=== PATIENT | male | born 1980 | race Caucasian/White ===

== ENCOUNTER 2021-03-05 19:13 | Inpatient (IN) | payer OTHER ==
[~2021-03-05] VITALS: Ht 175.3 cm; Wt 94.4 kg
[2021-03-05 19:19] VITALS: BP 131/77
[2021-03-05 20:15] LABS: HEMATOCRIT 34.3 % (42.0-52.0); MCH 33.5 pg (26.0-34.0); MCHC 35.1 g/dL (28.0-37.0); MCV 95.5 fL (80.0-100.0); PLATELET COUNT 56 thou/uL (150-400); RBC 3.59 mil/uL (4.50-6.00); WBC 2.8 thou/uL (4.0-11.0)
[2021-03-05 20:41] LABS: APTT 37.5 Seconds (24.5-32.8); INR 1.88; PROTIME 19.9 Seconds (10.5-12.1)
[2021-03-05 20:44] LABS: ALBUMIN 2.7 g/dL (3.4-5.0); CALCIUM 7.6 mg/dL (8.5-10.1); CREATININE 1.1 mg/dL (0.7-1.3); TOTAL BILIRUBIN 5.8 mg/dL (0.2-1.0); TOTAL PROTEIN 5.9 g/dL (6.4-8.2)
[2021-03-05 20:46] LABS: POTASSIUM 2.4 mmol/L (3.5-5.1)
[2021-03-05 22:15] LABS: ABSOLUTE NEUTROPHILS 1.3 thou/uL (1.4-8.2); ANISOCYTOSIS 1+; HYPOCHROMASIA SLIGHT; POLYCHROMASIA 1+
[2021-03-05 23:12] VITALS: BP 131/77
[2021-03-05 23:21] LABS: MAGNESIUM 1.1 mg/dL (1.8-2.4); PHOSPHORUS 2.9 mg/dL (2.6-4.7)
[2021-03-05 23:30] VITALS: BP 102/61
[2021-03-05 23:47] LABS: FOLIC ACID 12.6 ng/mL (8.6-58.9)
[2021-03-06] VITALS (7 sets, daily range): BP systolic 90–143; BP diastolic 60–80
[2021-03-06 03:31] LABS: HEMATOCRIT 33.1 % (42.0-52.0); HEMOGLOBIN 11.7 gm/dL (14.0-18.0); MCH 33.4 pg (26.0-34.0); MCHC 35.3 g/dL (28.0-37.0); MCV 94.8 fL (80.0-100.0); RBC 3.49 mil/uL (4.50-6.00); RDW 15.6 % (10.5-14.5); WBC 3.2 thou/uL (4.0-11.0)
[2021-03-06 03:47] LABS: ALBUMIN 2.4 g/dL (3.4-5.0); CALCIUM 7.1 mg/dL (8.5-10.1); CREATININE 0.9 mg/dL (0.7-1.3); TOTAL PROTEIN 5.5 g/dL (6.4-8.2)
[2021-03-06 03:50] LABS: POTASSIUM 2.5 mmol/L (3.5-5.1)
[2021-03-06] MEDS ORDERED: NEXIUM 40 MG CA40 M1 PO (05:30)
[2021-03-06] MEDS ORDERED: SPIRONOLACTONE50 MG PO (05:30)
[2021-03-06] MEDS ORDERED: FOLIC ACID1 MG PO (05:30)
[2021-03-06] MEDS ORDERED: FUROSEMIDE 40 M40 MG PO (05:30)
--- NOTE | 2021-03-06 08:00 | NUR ---
PT WAS ADMITTED FROM ED AT 0030. ASSESSMENTS COMPLETED AND CHARTED, ELECTROLYTES REPLACED PER PROTOCOL, PT ON CIWA PROTOCOL.
[2021-03-06 15:40] LABS: MAGNESIUM 1.7 mg/dL (1.8-2.4)
[2021-03-06 15:43] LABS: POTASSIUM 2.8 mmol/L (3.5-5.1)
[2021-03-07 04:05] LABS: HEMATOCRIT 35.3 % (42.0-52.0); HEMOGLOBIN 12.6 gm/dL (14.0-18.0); MCH 34.4 pg (26.0-34.0); MCHC 35.6 g/dL (28.0-37.0); MCV 96.5 fL (80.0-100.0); RBC 3.66 mil/uL (4.50-6.00); RDW 16.5 % (10.5-14.5); WBC 4.3 thou/uL (4.0-11.0)
[2021-03-07 04:19] LABS: CALCIUM 7.1 mg/dL (8.5-10.1); CREATININE 0.7 mg/dL (0.7-1.3); MAGNESIUM 1.5 mg/dL (1.8-2.4); PHOSPHORUS 1.2 mg/dL (2.5-4.9); POTASSIUM 3.1 mmol/L (3.5-5.1)
[2021-03-07 04:21] VITALS: BP 129/82
[2021-03-07 05:36] LABS: GLYCOHEMOGLOBIN (HGB A1C) 4.8 % (4.8-5.6)
--- NOTE | 2021-03-07 07:47 | NUR ---
Pt. stated he slept fair during the night. Magnesium and potassium have been replaced per protocol. Pt. has been calm and cooperative with a CIWA score of zero this shift. He calls appropriately for assistance. Bed alarm on for safety. Making some progress towards care plan goals.
[2021-03-07 08:00] VITALS: BP 115/73
[2021-03-07 10:43] LABS: INR 2.23; PROTIME 23.4 Seconds (10.5-12.1)
[2021-03-07 10:58] LABS: ALBUMIN 2.6 g/dL (3.4-5.0); CALCIUM 7.4 mg/dL (8.5-10.1); CREATININE 0.9 mg/dL (0.7-1.3); MAGNESIUM 1.3 mg/dL (1.8-2.4); TOTAL BILIRUBIN 8.7 mg/dL (0.2-1.0); TOTAL PROTEIN 5.9 g/dL (6.4-8.2)
[2021-03-07 11:02] LABS: POTASSIUM 2.9 mmol/L (3.5-5.1)
[2021-03-07 11:20] VITALS: BP 115/74
[2021-03-07 16:00] VITALS: BP 118/78
[2021-03-07 17:08] LABS: MAGNESIUM 1.3 mg/dL (1.8-2.4); POTASSIUM 3.2 mmol/L (3.5-5.1)
[2021-03-07 19:50] VITALS: BP 132/84
[2021-03-08 05:40] VITALS: BP 104/65
--- NOTE | 2021-03-08 07:33 | NUR ---
MAG AND K REPLACED THIS MORNING.A/O X 4.DENIES PAIN.CIWA SCORE 0.MONITOR SHOWS SR.POC CONTINUED.
[2021-03-08 07:48] LABS: PROTIME 23.4 Seconds (10.5-12.1)
[2021-03-08 07:51] LABS: INR 2.23
[2021-03-08 07:52] LABS: ALBUMIN 2.4 g/dL (3.4-5.0); CALCIUM 7.1 mg/dL (8.5-10.1); CREATININE 0.9 mg/dL (0.7-1.3); TOTAL BILIRUBIN 6.2 mg/dL (0.2-1.0); TOTAL PROTEIN 5.6 g/dL (6.4-8.2)
[2021-03-08 08:00] VITALS: BP 123/82
[2021-03-08 12:00] VITALS: BP 117/80
--- NOTE | 2021-03-08 15:23 | NUR ---
PT PROGRESSING TOWARDS POC GOALS. VSS THROUGHOUT SHIFT. K AND MG REPLACED THIS AM PER PROTOCOL. DENIES ANY PAIN THROUGHOUT THE DAY. ANXIOUS ABOUT DC PLAN AND WHERE HE CAN GO, HOWEVER HAS BEEN PROACTIVE IN CALLING PLACES AND LOOKING FOR A PLACE TO STAY. ASSESSMENT PER CHART. CIWA 0. PT CALM AND COOPERATIVE THIS SHIFT. STEADY GAIT TO BATHROOM AND BSC. WILL CONT TO MONITOR AND FOLLOW POC.
[2021-03-08] MEDS ORDERED: FUROSEMIDE 40 M40 MG PO (16:08)
[2021-03-08] MEDS ORDERED: PROPRANOLOL 20M20 M1 PO (16:08)
[2021-03-08] MEDS ORDERED: LACTULOSE20 GM/30 M PO (16:08)
[2021-03-08] MEDS ORDERED: SPIRONOLACTONE50 MG PO (16:08)
[2021-03-08] MEDS ORDERED: FOLIC ACID1 MG PO (16:09)
[2021-03-08] MEDS ORDERED: PRENATAL PO (16:09)
[2021-03-08] MEDS ORDERED: PROTONIX40 M2 PO (16:10)
[2021-03-08 16:36] VITALS: BP 117/80
[2021-03-08 16:37] VITALS: BP 106/88
--- NOTE | 2021-03-08 17:32 | NUR ---
met with patient who admits with ETOH withdraw. Patient reports he has been evicted. He plans to gather clothes at parents home but may not be able to stay with parents. He wants sober living establishment. He has called [facility] and can stay at [facility] but he prefers somewhere different. He has a call into [facility]. [facility] also called [facility] and left message. Patient plans to call [facility] as well. Patient has been into tx in past [facility] and [facility]. Reports that was when he had insurance. he is aware most inpatient rehab do not accept [place]. Patient reports he prefers to go to [facility] which is sober living but they do not have an opening at this time. Patient agreeable to dc home. He has already called sister to transport to parents to retrieve clothes. Patient aware of resources for treatment.
== END 2021-03-08 17:15 | disposition home or self-care (01) | DRG 433 ==
LOC: ER 19:13 → EROBS 21:40 → 2N 03-06 00:24
PROVIDERS: Emergency Medicine; Hospitalist; Internal Medicine Gastroenterology; Nurse Practitioner Family; ADMIT Internal Medicine; ATTEND Internal Medicine
DX: K70.11 Alcoholic hepatitis with ascites (principal); F10.239 Alcohol dependence with withdrawal, unspecified; D61.818 Other pancytopenia; I85.00 Esophageal varices without bleeding; K70.30 Alcoholic cirrhosis of liver without ascites; K72.90 Hepatic failure, unspecified without coma; E87.6 Hypokalemia; R74.01 Elevation of levels of liver transaminase levels; Z71.6 Tobacco abuse counseling; Z88.0 Allergy status to penicillin; Z91.14 Patient's other noncompliance with medication regimen; Z71.41 Alcohol abuse counseling and surveillance of alcoholic
CPT/HCPCS: 10081